=== PATIENT | female | born 1990 | race Caucasian/White ===

== ENCOUNTER 2016-04-05 15:10 | Emergency (ER) | payer OTHER ==
[2016-04-05 15:26] VITALS: BP 110/68; PULSE 54; RESP 14; O2SAT 96
--- NOTE | 2016-04-05 15:34 | UCPHY ---
[id number]/29/17 15:27 HPI/ROS: CHIEF COMPLAINT: Right 5th digit laceration HISTORY OF PRESENT ILLNESS: 26-year-old left hand dominant female with up-to- date tetanus sustained accidental laceration right 5th digit which was cutting vegetables shortly prior to arrival. No paresthesia. No sensory deficit. PHYSICAL EXAM (Prior to examination, patient consented to physical exam, hands were washed and my usual and customary physical exam procedures followed) 1) GENERAL: Well-developed, well-nourished, alert and oriented. . 2) HEAD: Normocephalic 3) HEENT: sclera anicteric 4) LUNGS: Breathing comfortably. 5) SKIN: Right 5th digit distal phalanx 1 cm Flap laceration with viable tissue distally. 6) MUSCULOSKELETAL: flexor extensor function intact 7) NEUROLOGIC: Full sensation (Glory Garcia) Constitutional: Initial Vital Signs Temperature (C) 36.3 C 04/05/16 15:16 Heart Rate 54 L 04/05/16 15:16 Respiratory Rate 14 04/05/16 15:16 Blood Pressure 110/68 04/05/16 15:16 O2 Sat (%) 96 04/05/16 15:16 Allergies/Adverse Reactions: peanut Allergy (Verified 04/05/16 15:25) Home Medications: Medication Instructions Recorded Adderall 10 MG (*) 04/05/16 Sertraline HCl 04/05/16 MDM/Departure - MDM Procedures: Procedure: Laceration repair. I explained the indications, risks and benefits for both laceration repair and anesthetic administration. Verbal consent was obtained from the patient . The laceration on the right 5th digit was anesthetized using 0.5% bupivicaine without epinephrine digital nerve block. After anesthetic administered the patient was observed for a period of time and had no apparent adverse effects. The wound was cleaned, prepped, draped in normal sterile fashion and explored to its base. No foreign body seen, no foreign bodies palpated. No tendon injury was identified. The wound was close with 3 simple interrupted 5 O Ethilon sutures. The wound repair was simple. The procedure was performed by myself. Patient has been informed that scarring will occur, although efforts have been made to minimize this. (Glory Garcia) ED Course/Re-evaluation: Urgent Care PA supervision Physician documentation: The patient was evaluated and managed by the physician recycling assistant. My co- signature indicates that I have reviewed this chart and I agree with the findings and plan of care as documented. I am the secondary supervising physician. (Jan Morris) - Depart Disposition: Home, Routine, Self-Care Clinical Impression: Finger laceration Qualifiers: Encounter type: initial encounter Qualifier Code: (S61.219A) Laceration without foreign body of unspecified finger without damage to nail, initial encounter Condition: Good Instructions: Laceration (ED), Care For Your Stitches (ED) Additional Instructions: Return to the ER if you develop redness, swelling, discharge, warmth to the wound, red streaks going up your arm, or any other symptoms that concern you. Referrals: Return, to the urgent care in 10 days for suture removal [Other] - As per Instructions - PQRS PQRS Measurement: Not applicable (Glory Garcia)
[2016-04-15 14:40] VITALS: TEMP 98.1
== END 2016-04-05 16:41 | disposition home or self-care (01) ==
LOC: CED 15:10
PROC: 0HQFXZZ Repair Right Hand Skin, External Approach (ICD-10-PCS; principal; 2016-04-05)
DX: S61.216A Laceration without foreign body of right little finger without damage to nail, initial encounter (principal)
CPT/HCPCS: G0463-PO